=== PATIENT | female | born 1970 | race Caucasian/White ===

== ENCOUNTER 2016-07-20 05:35 | Observation (INO) | payer MEDICAID, OTHER ==
[2016-07-20] VITALS (15 sets, daily range): BP systolic 136–179; BP diastolic 70–97; PULSE 112–130; RESP 16–20; TEMP 98.7–100; O2SAT 94–99
[~2016-07-20] VITALS: Ht 172.7 cm; Wt 114.0 kg
[~2016-07-20 05:35] MED LIST: DICL75 PO; TRAM50 PO
[2016-07-20] MEDS ORDERED: SODIUM CHLOR 0.9% 1000 ML INJ 1,000 ML IV ONE ×4 (05:58→09:45)
[2016-07-20] MEDS ORDERED: ONDANSETRON HCL 4 MG/2 ML VIAL IVP ONE (06:00)
--- NOTE | 2016-07-20 06:05 | PD ---
HPI Chief Complaint: GI Complaint Time Seen by Provider: 05:57 Travel History International Travel<30 days: No Contact w/Intl Traveler<30days: No Traveled to known affect area: No History of Present Illness HPI 45-year-old female presents to the emergency department by private transportation for evaluation of numerous episodes of vomiting with loose stools since 1 AM. Patient reports since Saturday she has been in the hospital with her 5-year-old child was admitted for a stomach virus. Mother has subsequently developed similar symptoms. Mother is also diabetic and has not taken her metformin for 2 days because she reportedly was caring for her child and could not take her medication. Patient ate a normal dinner last evening with a cheeseburger and croatian fries at the hospital and felt well. Patient has had no hematemesis or coffee-ground emesis and only one loose stool. Patient denies abdominal pain chest pain shortness of breath. Patient's had no recent fever or chills sinus pressure drainage sore throat earache neck pain chest pain abdominal pain flank pain dysuria frequency urgency joint pain or swelling or skin rash. Patient does have bouts of sciatica that affected the left back and left lower extremity. Patient denies any recent injury or fall. PFSH Past Medical History Narrative Medical Dyslipidemia type 2 diabetes hypertension kidney stones sciatica migraines; cholecystectomy tonsillectomy; no tobacco use; nursing notes reviewed Arthritis: No Asthma: No Heart Rhythm Problems: No Cancer: No Cardiovascular Problems: No High Cholesterol: Yes Chest Pain: No Congestive Heart Failure: No COPD: No Cerebrovascular Accident: No Diabetes: Yes Diminished Hearing: No Gastrointestinal Disorders: Yes GERD: No Genitourinary: Yes (KIDNEY STONES) Headaches: Yes Hiatal Hernia: No Hypertension: Yes Kidney Stones: Yes Musculoskeletal: Yes (SCIATICA) Neurologic: Yes (LEFT SCIATICA) Reproductive: No Respiratory: No Immunizations Current: No Migraines: Yes Renal Failure: No Seizures: No Sleep Apnea: No Ulcer: No PNEUMOCCOCAL Vaccine (Year): 2 : 4 Para: 4 Miscarriage: 0 : 0 Tubal Ligation: Yes Past Surgical History Abdominal Surgery: Yes ( CHOLECYSTECTOMY) Cardiac Surgery: No Section: Yes (X's 3) Cholecystectomy: Yes (1998) Ear Surgery: No Endocrine Surgery: No Eye Surgery: No Genitourinary Surgery: No Neurologic Surgery: No Oral Surgery: No Pacemaker: No Thoracic Surgery: No Tonsillectomy: Yes Other Surgery: No Social History Alcohol Use: No Tobacco Use: No Substance Use: No Allergies-Medications (Allergen,Severity, Reaction): Coded Allergies: Penicillin (Verified Allergy, Severe, UNKNOWN, 07/20/16) Percocet (Verified Adverse Reaction, Severe, ITCH, 07/20/16) Reported Meds & Prescriptions Reported Meds & Active Scripts Active Reported Aspirin 325 Mg Tab 325 Mg PO DAILY Lisinopril 20 Mg Tab 20 Mg PO DAILY Metformin (Metformin HCl) 500 Mg Tab 500 Mg PO BIDPC With meals Review of Systems Except as stated in HPI: all other systems reviewed are Neg Physical Exam Narrative GENERAL: Well-developed well-nourished female in no acute distress no respiratory distress; triage vital signs heart rate 130 SKIN: Warm and dry. HEAD: Normocephalic. EYES: No scleral icterus. No injection or drainage. NECK: Supple, trachea midline. No JVD or lymphadenopathy. CARDIOVASCULAR: Regular rate and rhythm without murmurs, gallops, or rubs. RESPIRATORY: Breath sounds equal bilaterally. No accessory muscle use. GASTROINTESTINAL: Abdomen soft, non-tender, nondistended. MUSCULOSKELETAL: No cyanosis, or edema. BACK: Nontender without obvious deformity. No CVA tenderness. Data Data Last Documented VS Vital Signs Date Time Temp Pulse Resp B/P Pulse Ox O2 Delivery O2 Flow Rate FiO2 07/20/16 07:02 116 16 179/92 99 Room Air 07/20/16 05:43 98.7 Orders Complete Blood Count With Diff (07/20/16 05:58) Comprehensive Metabolic Panel (07/20/16 05:58) Urinalysis - C+S If Indicated (07/20/16 05:58) Lipase (07/20/16 05:58) Iv Access Insert/Monitor (07/20/16 05:58) Ecg Monitoring (07/20/16 05:58) Oximetry (07/20/16 05:58) Ondansetron Inj (Zofran Inj) (07/20/16 06:00) Sodium Chlor 0.9% 1000 Ml Inj (Ns 1000 M (07/20/16 05:58) Sodium Chloride 0.9% Flush (Ns Flush) (07/20/16 06:00) Ed Urine Pregnancytest Poc (07/20/16 05:58) Sodium Chlor 0.9% 1000 Ml Inj (Ns 1000 M (07/20/16 06:00) Magnesium (Mg) (07/20/16 05:58) Blood Glucose (07/20/16 05:58) Labs Laboratory Tests Test 07/20/16 06:10 White Blood Count 17.1 TH/MM3 Red Blood Count 5.65 MIL/MM3 Hemoglobin 16.2 GM/DL Hematocrit 47.8 % Mean Corpuscular Volume 84.6 FL Mean Corpuscular Hemoglobin 28.7 PG Mean Corpuscular Hemoglobin 33.9 % Concent Red Cell Distribution Width 12.8 % Platelet Count 404 TH/MM3 Mean Platelet Volume 8.7 FL Neutrophils (%) (Auto) 89.5 % Lymphocytes (%) (Auto) 4.4 % Monocytes (%) (Auto) 5.6 % Eosinophils (%) (Auto) 0.2 % Basophils (%) (Auto) 0.3 % Neutrophils # (Auto) 15.2 TH/MM3 Lymphocytes # (Auto) 0.8 TH/MM3 Monocytes # (Auto) 1.0 TH/MM3 Eosinophils # (Auto) 0.0 TH/MM3 Basophils # (Auto) 0.1 TH/MM3 CBC Comment DIFF FINAL Differential Comment Sodium Level 137 MEQ/L Potassium Level 4.0 MEQ/L Chloride Level 102 MEQ/L Carbon Dioxide Level 21.8 MEQ/L Anion Gap 13 MEQ/L Blood Urea Nitrogen 15 MG/DL Creatinine 0.88 MG/DL Estimat Glomerular Filtration 69 ML/MIN Rate Random Glucose 388 MG/DL Calcium Level 9.0 MG/DL Magnesium Level 1.6 MG/DL Total Bilirubin 1.4 MG/DL Aspartate Amino Transf 9 U/L (AST/SGOT) Alanine Aminotransferase 22 U/L (ALT/SGPT) Alkaline Phosphatase 119 U/L Total Protein 7.4 GM/DL Albumin 3.7 GM/DL Lipase 134 U/L MDM Medical Decision Making Medical Screen Exam Complete: Yes Emergency Medical Condition: Yes Medical Record Reviewed: Yes Differential Diagnosis Gastroenteritis, food borne illness, hyperglycemia, DKA, compliance, UTI, Narrative Course IV access obtained specimens collected and sent for resulting normal saline bolus 2 administered along with Zofran 4 mg IV; B @7:05 AM care signed over to oncoming physician Dr. Kent Critical Care Narrative Aggregate critical care time was 35 minutes. Time to perform other separately billable procedures was not included in the critical care time. My time did not include minutes spent treating any other patients simultaneously or on activities that did not directly contribute to the patient's treatment. The services I provided to this patient were to treat and/or prevent clinically significant deterioration that could result in: Arrhythmia, sepsis, hypovolemic shock, metabolic acidosis/metabolic disturbance, I provided critical care services requiring my management, as noted below: Chart data review, documentation time, medication orders and management, vital sign assessments/reviewing monitor data, ordering and reviewing lab tests, ordering and interpreting/reviewing x-rays and diagnostic studies, care of the patient and discussion of the patient with the admitting physicians. Sepsis Criteria SIRS Criteria (2 or more): Heart rate over 90 Meli Esposito MD Jul 20, 2016 06:05
[2016-07-20] MEDS: SODIUM CHLORIDE 0.9% FLUSH 5 ML FLUSH IVF PRN ×2 (06:17→09:54)
[2016-07-20 06:31] LABS: AUTOMATED NEUTROPHIL # 15.2 TH/MM3 (1.8-7.7); BASOPHIL # 0.1 TH/MM3 (0-0.2); BASOPHIL % 0.3 % (0.0-2.0); EOSINOPHIL % 0.2 % (0.0-4.0); HEMATOCRIT 47.8 % (35.0-46.0); LYMPH % 4.4 % (9.0-44.0); LYMPHOCYTE # 0.8 TH/MM3 (1.0-4.8); MEAN CELL VOLUME 84.6 FL (80.0-100.0); MEAN CORPUSCULAR HEMOGLOBIN 28.7 PG (27.0-34.0); MEAN CORPUSCULAR HGB CONC 33.9 % (32.0-36.0); MONO % 5.6 % (0.0-8.0); NEUT % 89.5 % (16.0-70.0); PLATELET COUNT 404 TH/MM3 (150-450); RED BLOOD COUNT 5.65 MIL/MM3 (4.00-5.30); RED CELL DISTRIBUTION WIDTH 12.8 % (11.6-17.2); WHITE BLOOD COUNT 17.1 TH/MM3 (4.0-11.0)
[2016-07-20 06:36] LABS: HEMO FLAGS DIFF FINAL
[2016-07-20 06:39] LABS: CHLORIDE 102 MEQ/L (98-107); SODIUM (NA) 137 MEQ/L (136-145)
[2016-07-20] MEDS ORDERED: METF500T PO (06:40)
[2016-07-20] MEDS ORDERED: LISI-515 PO (06:42)
[2016-07-20] MEDS ORDERED: ASPI325T PO (06:42)
[2016-07-20 06:43] LABS: ANION GAP 13 MEQ/L (5-15); BICARBONATE 21.8 MEQ/L (21.0-32.0); BLOOD UREA NITROGEN 15 MG/DL (7-18); MAGNESIUM 1.6 MG/DL (1.5-2.5)
[2016-07-20 06:46] LABS: ALT (GPT) 22 U/L (10-53); AST (GOT) 9 U/L (15-37); GLOMERULAR FILTRATION RATE 69 ML/MIN (>89)
[2016-07-20 06:48] LABS: TOTAL BILIRUBIN ADULT 1.4 MG/DL (0.2-1.0)
[2016-07-20 06:49] LABS: ALKALINE PHOSPHATASE 119 U/L (45-117)
--- NOTE | 2016-07-20 07:36 | PD ---
Physical Exam Date Seen by Provider: Jul 20, 2016 Narrative Care is assumed from Dr. Esposito. Patient is being seen with the acute onset of vomiting. She is a diabetic and is hyperglycemic. She was being treated with IV fluids and IV antibiotics. The patient is now requesting something for headache. Thus far, she has been given Zofran. I will add Compazine and Benadryl. That should help both the vomiting and the headache. Data Data Last Documented VS Vital Signs Date Time Temp Pulse Resp B/P Pulse Ox O2 Delivery O2 Flow Rate FiO2 07/20/16 12:59 130 16 136/70 142 16 156/84 143 16 169/81 07/20/16 11:28 97 Room Air 07/20/16 05:43 98.7 Orders Complete Blood Count With Diff (07/20/16 05:58) Comprehensive Metabolic Panel (07/20/16 05:58) Urinalysis - C+S If Indicated (07/20/16 05:58) Lipase (07/20/16 05:58) Iv Access Insert/Monitor (07/20/16 05:58) Ecg Monitoring (07/20/16 05:58) Oximetry (07/20/16 05:58) Ondansetron Inj (Zofran Inj) (07/20/16 06:00) Sodium Chlor 0.9% 1000 Ml Inj (Ns 1000 M (07/20/16 05:58) Sodium Chloride 0.9% Flush (Ns Flush) (07/20/16 06:00) Ed Urine Pregnancytest Poc (07/20/16 05:58) Sodium Chlor 0.9% 1000 Ml Inj (Ns 1000 M (07/20/16 06:00) Magnesium (Mg) (07/20/16 05:58) Blood Glucose (07/20/16 05:58) Prochlorperazine Inj (Compazine Inj) (07/20/16 07:45) Diphenhydramine Inj (Benadryl Inj) (07/20/16 07:45) Bedside Glucose KHUSHI.AC&HS (07/20/16 07:37) Vital Signs (07/20/16 07:37) Sodium Chlor 0.9% 1000 Ml Inj (Ns 1000 M (07/20/16 09:45) Sodium Chlor 0.9% 1000 Ml Inj (Ns 1000 M (07/20/16 09:45) Vital Signs (07/20/16 09:39) Lactic Acid Sepsis Protocol (07/20/16 10:59) Blood Culture (07/20/16 10:59) Complete Blood Count With Diff (07/20/16 10:59) Orthostatic Vital Signs (07/20/16 10:59) Admit Order (Ed Use Only) (07/20/16 14:20) Labs Laboratory Tests Test 07/20/16 07/20/16 07/20/16 07/20/16 06:10 07:25 11:20 11:45 White Blood Count 17.1 TH/MM3 10.1 TH/MM3 Red Blood Count 5.65 MIL/MM3 5.04 MIL/MM3 Hemoglobin 16.2 GM/DL 14.6 GM/DL Hematocrit 47.8 % 42.5 % Mean Corpuscular Volume 84.6 FL 84.2 FL Mean Corpuscular Hemoglobin 28.7 PG 28.9 PG Mean Corpuscular Hemoglobin 33.9 % 34.3 % Concent Red Cell Distribution Width 12.8 % 12.5 % Platelet Count 404 TH/MM3 321 TH/MM3 Mean Platelet Volume 8.7 FL 8.6 FL Neutrophils (%) (Auto) 89.5 % 93.4 % Lymphocytes (%) (Auto) 4.4 % 3.5 % Monocytes (%) (Auto) 5.6 % 2.8 % Eosinophils (%) (Auto) 0.2 % 0.1 % Basophils (%) (Auto) 0.3 % 0.2 % Neutrophils # (Auto) 15.2 TH/MM3 9.4 TH/MM3 Lymphocytes # (Auto) 0.8 TH/MM3 0.4 TH/MM3 Monocytes # (Auto) 1.0 TH/MM3 0.3 TH/MM3 Eosinophils # (Auto) 0.0 TH/MM3 0.0 TH/MM3 Basophils # (Auto) 0.1 TH/MM3 0.0 TH/MM3 CBC Comment DIFF FINAL DIFF FINAL Differential Comment Sodium Level 137 MEQ/L Potassium Level 4.0 MEQ/L Chloride Level 102 MEQ/L Carbon Dioxide Level 21.8 MEQ/L Anion Gap 13 MEQ/L Blood Urea Nitrogen 15 MG/DL Creatinine 0.88 MG/DL Estimat Glomerular Filtration 69 ML/MIN Rate Random Glucose 388 MG/DL Calcium Level 9.0 MG/DL Magnesium Level 1.6 MG/DL Total Bilirubin 1.4 MG/DL Aspartate Amino Transf 9 U/L (AST/SGOT) Alanine Aminotransferase 22 U/L (ALT/SGPT) Alkaline Phosphatase 119 U/L Total Protein 7.4 GM/DL Albumin 3.7 GM/DL Lipase 134 U/L Urine Collection Type CLEAN CATCH Urine Color YELLOW Urine Turbidity CLEAR Urine pH 5.5 Urine Specific [place] 1.035 Urine Protein 30 mg/dL Urine Glucose (UA) 1000 OR GREATER mg/dL Urine Ketones 80 OR GREATER mg/dL Urine Occult Blood TRACE Urine Nitrite NEG Urine Bilirubin NEG Urine Leukocyte Esterase NEG Urine RBC 0-3 /hpf Urine WBC 0-2 /hpf Urine Squamous Epithelial 6-8 /hpf Cells Microscopic Urinalysis Comment CULT NOT INDICATED Urine Collection Time 07:25 Lactic Acid Level 2.4 mmol/L [facility] Supervised Visit with LISANDRA: No Narrative Course The patient's abdomen is soft and seems to be nontender. Laboratory Tests Test 07/20/16 07/20/16 06:10 07:25 White Blood Count 17.1 TH/MM3 Red Blood Count 5.65 MIL/MM3 Hemoglobin 16.2 GM/DL Hematocrit 47.8 % Mean Corpuscular Volume 84.6 FL Mean Corpuscular Hemoglobin 28.7 PG Mean Corpuscular Hemoglobin 33.9 % Concent Red Cell Distribution Width 12.8 % Platelet Count 404 TH/MM3 Mean Platelet Volume 8.7 FL Neutrophils (%) (Auto) 89.5 % Lymphocytes (%) (Auto) 4.4 % Monocytes (%) (Auto) 5.6 % Eosinophils (%) (Auto) 0.2 % Basophils (%) (Auto) 0.3 % Neutrophils # (Auto) 15.2 TH/MM3 Lymphocytes # (Auto) 0.8 TH/MM3 Monocytes # (Auto) 1.0 TH/MM3 Eosinophils # (Auto) 0.0 TH/MM3 Basophils # (Auto) 0.1 TH/MM3 CBC Comment DIFF FINAL Differential Comment Sodium Level 137 MEQ/L Potassium Level 4.0 MEQ/L Chloride Level 102 MEQ/L Carbon Dioxide Level 21.8 MEQ/L Anion Gap 13 MEQ/L Blood Urea Nitrogen 15 MG/DL Creatinine 0.88 MG/DL Estimat Glomerular Filtration 69 ML/MIN Rate Random Glucose 388 MG/DL Calcium Level 9.0 MG/DL Magnesium Level 1.6 MG/DL Total Bilirubin 1.4 MG/DL Aspartate Amino Transf 9 U/L (AST/SGOT) Alanine Aminotransferase 22 U/L (ALT/SGPT) Alkaline Phosphatase 119 U/L Total Protein 7.4 GM/DL Albumin 3.7 GM/DL Lipase 134 U/L Urine Collection Type CLEAN CATCH Urine Color YELLOW Urine Turbidity CLEAR Urine pH 5.5 Urine Specific [place] 1.035 Urine Protein 30 mg/dL Urine Glucose (UA) 1000 OR GREATER mg/dL Urine Ketones 80 OR GREATER mg/dL Urine Occult Blood TRACE Urine Nitrite NEG Urine Bilirubin NEG Urine Leukocyte Esterase NEG Urine RBC 0-3 /hpf Urine WBC 0-2 /hpf Urine Squamous Epithelial 6-8 /hpf Cells Microscopic Urinalysis Comment CULT NOT INDICATED Urine Collection Time 07:25 Patient has been treated here with 2 L of fluid and Zofran initially. She was subsequently given Compazine and Benadryl for a complaint of headache. 9:40 AM Patient continues to be tachycardic at about 120 following 2 L of fluid. I have ordered an additional 2 L bolus and will recheck her vital signs following this. 11 AM Patient continues to be tachycardic at about 120 even following 4 L of fluid. I have ordered a repeat CBC, a lactic acid, blood cultures and orthostatic vital signs. 1:20 PM Patient continues to be tachycardic. Orthostatic vital signs are negative. Repeat white count is about 10. Lactic acid was 2.4. In the meantime, I have spoken with Dr. Booker a couple of times about the patient. She has most recently asked me to speak with patient's primary care provider, Dr. Valles. We have a page out to him but his office is closed for lunch. 1:40 PM I have spoken with Dr. Reis, Dr. Valles's partner, who is able to look at the patient's records in the office. The patient is chronically noncompliant with her diabetic medication., He is not generally tachycardic in the office. Her most recent outpatient heart rate was 69. He agrees that the patient needs to be admitted at least for observation. I will call Dr. Sid Robertson back. 2:[address] Booker will now admit to OBSERVATION. Sepsis Criteria SIRS Criteria (2 or more): Heart rate over 90, WBC > 36706, < 4000 or > 10% bands Septic Shock Criteria: Unresponsive to 30ml/kg fluid bolus Physician Communication Physician Communication Case discussed with Dr. Knapp. She asked that I observe the patient for another hour. If the patient does not improve in that hour, she will admit the patient to observation Diagnosis Primary Impression: Vomiting Qualified Code: R11.2 - Non-intractable vomiting with nausea, unspecified vomiting type Additional Impressions: Acute hyperglycemia Headache Qualified Code: R51 - Acute nonintractable headache, unspecified headache type SIRS (systemic inflammatory response syndrome) Admitting Information Admitting Physician Requests: Observation Condition: Stable Alysia Kent MD Jul 20, 2016 07:35
[2016-07-20 07:40] LABS: BLOOD, URINE TRACE (NEG); NITRITE,URINE NEG (NEG); PH, URINE 5.5 (5.0-8.5)
[2016-07-20 07:44] LABS: GLUCOSE,URINE 1000 OR GREATER mg/dL (NEG); KETONE, URINE 80 OR GREATER mg/dL (NEG)
[2016-07-20 07:45] LABS: METHOD OF COLLECTION CLEAN CATCH; RBC, URINE 0-3 /hpf (0-3); URINE COLOR YELLOW (YELLW/STRAW); WBC, URINE 0-2 /hpf (0-5)
[2016-07-20] MEDS ORDERED: diphenhydrAMINE HCL 50 MG/ML VIAL IV PUSH ONE (07:45)
[2016-07-20] MEDS ORDERED: PROCHLORPERAZINE INJ 10 MG/2 ML VIAL IVS ONE (07:45)
[2016-07-20 07:46] LABS: COMMENT (UR) CULT NOT INDICATED; CULTURE IF INDICATED CULT NOT INDICATED
[2016-07-20] MEDS ORDERED: PROM25TA5 PO (09:42)
[2016-07-20 11:43] LABS: AUTOMATED NEUTROPHIL # 9.4 TH/MM3 (1.8-7.7); BASOPHIL % 0.2 % (0.0-2.0); EOSINOPHIL % 0.1 % (0.0-4.0); HEMATOCRIT 42.5 % (35.0-46.0); HEMO FLAGS DIFF FINAL; LYMPH % 3.5 % (9.0-44.0); LYMPHOCYTE # 0.4 TH/MM3 (1.0-4.8); MEAN CELL VOLUME 84.2 FL (80.0-100.0); MEAN CORPUSCULAR HEMOGLOBIN 28.9 PG (27.0-34.0); MEAN CORPUSCULAR HGB CONC 34.3 % (32.0-36.0); MONO % 2.8 % (0.0-8.0); NEUT % 93.4 % (16.0-70.0); PLATELET COUNT 321 TH/MM3 (150-450); RED BLOOD COUNT 5.04 MIL/MM3 (4.00-5.30); RED CELL DISTRIBUTION WIDTH 12.5 % (11.6-17.2); WHITE BLOOD COUNT 10.1 TH/MM3 (4.0-11.0)
[2016-07-20 13:46] LABS: LACTIC ACID GHOST NOT REPORTABLE
[2016-07-20] MEDS ORDERED: NALOXONE HCL 0.4 MG/ML AMP IV PRN (15:15)
[2016-07-20] MEDS ORDERED: SODIUM CHLORIDE 0.9% FLUSH 5 ML FLUSH FLUSH PRN (15:15)
[2016-07-20] MEDS: ACETAMINOPHEN 325 MG TAB PO PRN (15:34)
[2016-07-20] MEDS: SODIUM CHLOR 0.9% 1000 ML INJ 1,000 ML IV SCH (15:34)
[2016-07-20] MEDS ORDERED: ONDANSETRON HCL 4 MG/2 ML VIAL IVP PRN (16:00)
[2016-07-20 16:20] LABS: BICARBONATE 19.3 MEQ/L (21.0-32.0); CALCIUM-PROTEIN CORRECTED 8.1 MG/DL (8.5-10.1); POTASSIUM 3.6 MEQ/L (3.5-5.1)
[2016-07-20] MEDS ORDERED: KETOROLAC TROMETHAMINE 30 MG/ML (IVP) VIAL IV PUSH ONE (16:45)
[2016-07-20] MEDS: INSULIN ASPART SUPPLEMENTAL SCALE SQ SCH ×2 (16:56→21:33)
[2016-07-20] MEDS: LISINOPRIL 20 MG TAB PO SCH ×2 (17:13→17:14)
--- NOTE | 2016-07-20 18:05 | MH ---
cc: ONIEL WRAY M.D. DATE OF ADMISSION 07/20/2016 ADMISSION DIAGNOSIS Hyperglycemia, headache, tachycardia. HISTORY OF PRESENT ILLNESS Ms Dubois is a 45-year-old female who presents to the emergency room after waking up this morning and having several episodes of emesis. According to the patient, she has been in her usual state of health, but under a little bit more increased stress as her daughter has been at [facility] admitted to the hospital. She says that she has been there for the last several days at her side caring for her. She has had very little sleep. She has primarily been eating at the hospital. Last night she had a cheeseburger and she said she had a slice of pizza again after she had gone home which did not sit very well on her. This morning when she woke up she had several bouts of emesis that were not resolving. She did say that she had one formed stool with the emesis. She denies any actual abdominal pain or nausea. She is diabetic and hypertensive and apparently for the last three days since her daughter has been in the hospital. She has not been taking any of her medications. She also states that since she got to the emergency room she has had the progressive development of a headache which is primarily frontal and over her left eye. She says that she does get these. She does have a history of these and she has actually been getting them a little bit more frequently lately, maybe once a week. They usually resolve with Advil. She denies any episodes of nausea or vomiting when she does have these headaches. She has had no fevers or chills. She has had no household members that are sick. Her daughter was seen in the hospital for UTI and then constipation. She has had episodes of admission to the hospital for similar symptoms. PAST MEDICAL HISTORY 1. Hyperlipidemia. 2. Gestational diabetes and then afterwards developed type 2 diabetes 3. High blood pressure 4. Problems with sciatica in the past 5. Recurrent headaches. PAST SURGICAL HISTORY 1. Cholecystectomy 2. x3 3. Tubal ligations ALLERGIES PENICILLIN - DOES NOT KNOW WHAT THE ALLERGY CONSISTS OF. She says she was told this by her mother. PERCOCET - ITCHING MEDICATIONS Supposed to be on 1. Metformin 500 mg twice a day, 2. Lisinopril 20 mg daily. She says this was recently increased by her doctor. 3. Aspirin 4. Flexeril and Methocarbamol in the past for muscle spasms and sciatic HABITS She does not smoke or consume alcohol. SOCIAL HISTORY She is . She has three children. 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 REVIEW OF SYSTEMS She denies any fevers, chills, any sore throat. She has not had any chest pain or palpitations. She sometimes will get some pain on both upper arms. Currently she has denied any kind of abdominal pain, change in her bowel movements. She is not having any diarrhea. She just had that one formed stool with episode of emesis. She denies any dysuria or urgency. She states she has not had any increased urination. She does say that she has had what she calls some boils over her suprapubic area and around her vagina in the last week. These apparently she has been treating with moist hot compresses and these have been resolving. She does get pain in her lower legs at times, but she has not noticed any swelling. FAMILY HISTORY Noncontributory PHYSICAL EXAMINATION VITAL SIGNS: Heart rate is 129, pulse is 16, blood pressure is 158/80, pulse ox on room air is 98%. GENERAL: This is a pleasant obese female lying in the ER cot. She is a little bit flushed. She looks uncomfortable. She is wearing glasses. HEENT: She is normocephalic atraumatic. EOM is intact. She has a clear oropharynx. Both ear canals are clear as well as her tympanic membranes. NECK: Supple. She has no bruits. LUNGS: Clear to auscultation bilaterally. Cardiac: She is tachycardiac but I hear no murmurs. ABDOMEN: Abdomen is globose. She has good bowel sounds in all four quadrants. A little bit of tenderness in the mid epigastric to right upper quadrant. EXTREMITIES: No clubbing, cyanosis. SKIN: She does have some healing areas in her suprapubic area where she might have had some boils, but the skin in the suprapubic area seems to be dry and the one in the labia is actually not very large and has no head, is not tender or red. LABORATORY DATA Lab work that was done when she came in showed White count of 17.1, hemoglobin 16.2, hematocrit of 47.8, platelet count was 404. Sodium was 137, potassium was four, BUN was 15, creatinine of 0.88, glucose was 388, total bilirubin was 1.4, AST was nine, alkaline phosphatase was 119, lactic acid was 2.4. Her urine showed 1000 or greater glucose, 80 or greater ketones, trace occult blood. CARDIOLOGY STUDIES EKG has not been ordered yet, but in the monitor she looks like a sinus tachycardia. ASSESSMENT/PLAN A 45-year-old female presenting to the emergency room with emesis. She was given Zofran then Compazine and Benadryl. She has had no further episodes of emesis since this has been given to her. She has been given IV fluids. Her blood pressure has done well, but she has remained consistently tachycardiac. She is also complaining of persistent headache. At this point, since the headaches have responded to nonsteroidals in the past I am going to give her a one-time dose of Toradol. It is possible that her tachycardia is secondary to the pain. She has not received any insulin to cover her hyperglycemia. We will start her on a low sliding scale regimen of insulin as well as a normal saline to bring down her sugars. Check a hemoglobin A1c as well as a TSH. Further recommendations as the case develops. MD MILTON Martino/ /4:47 PM /5:39 PM
[2016-07-20] MEDS ORDERED: POTASSIUM CHLORIDE 10 MEQ CONTROLLED RELEASE TAB PO ONE (19:15)
[2016-07-20] MEDS: PANTOPRAZOLE SOD 40 MG DELAYED RELEASE TAB PO SCH (19:38)
[2016-07-20] MEDS: SODIUM CHLORIDE 0.9% FLUSH 5 ML FLUSH FLUSH SCH (21:00)
[2016-07-20] MEDS ORDERED: TEMAZEPAM 15 MG CAP PO PRN (21:00)
[2016-07-20] MEDS: CALCIUM CARBONATE 500 MG CHEWABLE TAB CHEW SCH (21:33)
[2016-07-20] MEDS ORDERED: LORazepam 0.5 MG TAB PO ONE (23:00)
[2016-07-20] MEDS ORDERED: ACETAMIN 325 MG/BUTALBITAL 50 MG/CAFFEINE 40 MG TAB PO ONE (23:00)
[2016-07-21 01:53] VITALS: PULSE 120
[2016-07-21 05:07] VITALS: BP 104/58; PULSE 101; RESP 12; TEMP 97.7; O2SAT 96
[2016-07-21] MEDS: INSULIN ASPART SUPPLEMENTAL SCALE SQ SCH ×4 (06:17→21:00)
[2016-07-21] MEDS: SODIUM CHLOR 0.9% 1000 ML INJ 1,000 ML IV SCH (06:17)
[2016-07-21 07:12] LABS: AUTOMATED NEUTROPHIL # 6.2 TH/MM3 (1.8-7.7); BASOPHIL % 0.4 % (0.0-2.0); EOSINOPHIL % 0.2 % (0.0-4.0); HEMATOCRIT 39.9 % (35.0-46.0); HEMO FLAGS DIFF FINAL; LYMPH % 17.3 % (9.0-44.0); LYMPHOCYTE # 1.4 TH/MM3 (1.0-4.8); MEAN CELL VOLUME 83.8 FL (80.0-100.0); MEAN CORPUSCULAR HEMOGLOBIN 29.1 PG (27.0-34.0); MEAN CORPUSCULAR HGB CONC 34.7 % (32.0-36.0); MONO % 6.7 % (0.0-8.0); NEUT % 75.4 % (16.0-70.0); PLATELET COUNT 309 TH/MM3 (150-450); RED BLOOD COUNT 4.76 MIL/MM3 (4.00-5.30); RED CELL DISTRIBUTION WIDTH 12.5 % (11.6-17.2); WHITE BLOOD COUNT 8.1 TH/MM3 (4.0-11.0)
[2016-07-21 07:31] LABS: CHLORIDE 108 MEQ/L (98-107); SODIUM (NA) 139 MEQ/L (136-145)
[2016-07-21 07:36] LABS: BLOOD UREA NITROGEN 9 MG/DL (7-18)
[2016-07-21 07:37] LABS: ANION GAP 10 MEQ/L (5-15); BICARBONATE 21.2 MEQ/L (21.0-32.0)
[2016-07-21 07:39] LABS: ALT (GPT) 18 U/L (10-53); AST (GOT) 10 U/L (15-37); GLOMERULAR FILTRATION RATE 89 ML/MIN (>89)
--- NOTE | 2016-07-21 07:41 | HHI.PR ---
Subjective Remarks Had a couple of episodes of diarrhea last night. No more vomiting. Feels hungry but is a bit fearful of eating this morning due to the diarrhea. No hematochezia or melena. Denies chest pain or shortness of breath. Objective Vitals Vital Signs Date Time Temp Pulse Resp B/P Pulse Ox O2 Delivery O2 Flow Rate FiO2 07/21/16 05:07 97.7 101 12 104/58 96 07/21/16 01:53 120 07/20/16 23:57 100.0 07/20/16 21:39 112 18 147/83 99 Room Air 07/20/16 19:33 112 18 137/85 98 Room Air 07/20/16 19:30 97 21 07/20/16 16:58 16 07/20/16 15:24 129 16 158/80 98 Room Air 07/20/16 15:20 98 21 07/20/16 12:59 130 16 136/70 142 16 156/84 143 16 169/81 07/20/16 11:28 124 16 147/80 97 Room Air 07/20/16 09:28 121 16 154/87 97 Room Air 07/20/16 08:23 122 16 168/80 99 Room Air 07/20/16 07:53 120 16 168/72 98 Room Air 07/20/16 07/20/16 07/21/16 15:00 23:00 07:00 Intake Total 4000 ml 720 ml Output Total 400 ml Balance 4000 ml 320 ml Intake Oral 240 ml IV Total 4000 ml 480 ml Output Urine Total 400 ml # Voids 1 3 1 # Bowel Movements 0 GENERAL: Obese, no acute distress, alert and oriented and cooperative with exam. SKIN: Warm and dry. HEAD: Normocephalic. No tenderness to palpation over temporal arteries. Slight tenderness to palpation over left frontal sinus. EYES: No scleral icterus. No injection or drainage. NECK: Supple, trachea midline. No JVD or lymphadenopathy. No nuchal rigidity or meningismus signs. CARDIOVASCULAR: Regular rate and rhythm without murmurs, gallops, or rubs. Heart rate approximately 105 on my exam. RESPIRATORY: Breath sounds equal bilaterally. No accessory muscle use. GASTROINTESTINAL: Abdomen soft, nondistended. Mild tenderness to palpation in lower abdomen. No guarding or rebound. Bowel sounds normoactive. MUSCULOSKELETAL: No cyanosis, or edema. BACK: Nontender without obvious deformity. No CVA tenderness. Result Diagram: 07/21/16 0640 07/20/16 1520 Urinary Catheter: No Vascular Central Line Catheter: No A/P Problem List: (1) SIRS (systemic inflammatory response syndrome) Status: Acute Plan: Possibly associated with the gastroenteritis. Do not see evidence of acute bacterial infection on exam. White blood cell count is normalized. Her mild lactic acidosis elevation was possibly associated with dehydration due to vomiting and diarrhea. She has good urine output and desires to eat this morning. Hopefully discharge home later today depending on how she does with diet tolerance. It is noted she has persistent mild tachycardia. She has had tachycardia in the past. Some of this biopsy associated with her intervascular volume depletion while other etiology could be her left frontal sinus headache which is a recurrent issue for her. (2) Gastroenteritis Status: Acute Plan: Possibly from unusual food ingestion is urinating well and has had no more vomiting. She has had 2 reported episodes of diarrhea overnight. Advance diet. (3) Diabetes mellitus type 2 in obese Status: Chronic Plan: We'll hold metformin while she is having the diarrhea. We'll give a dose of glimepiride to see how she tolerates this morning. I have had a long discussion with her regarding importance of home monitoring of her sugars and the need to lose more weight. She would likely benefit from metformin and Jardiance combination as an outpatient once current gastroenteritis has resolved. I did discuss this with her as well. Discharge Planning Hopefully discharge home today. Owen Padilla MD PhD Jul 21, 2016 07:41
[2016-07-21 07:42] LABS: ALKALINE PHOSPHATASE 95 U/L (45-117)
[2016-07-21] MEDS ORDERED: GLIM1TAB PO (07:44)
[2016-07-21] MEDS ORDERED: CALC500C16 CHEW (07:44)
[2016-07-21] MEDS ORDERED: PANT40TA3 PO (07:44)
[2016-07-21] MEDS ORDERED: METF500T PO (07:46)
[2016-07-21 08:00] VITALS: BP 139/84; PULSE 109; RESP 20; TEMP 99.7; O2SAT 95
[2016-07-21] MEDS ORDERED: NS + KCL 40 MEQ INJ 1,000 ML IV SCH (08:45)
[2016-07-21] MEDS: ASPIRIN 325 MG TAB PO SCH (08:59)
[2016-07-21] MEDS: GLIMEPIRIDE 1 MG TAB PO SCH (08:59)
[2016-07-21] MEDS: CALCIUM CARBONATE 500 MG CHEWABLE TAB CHEW SCH ×2 (08:59→20:59)
[2016-07-21] MEDS: PANTOPRAZOLE SOD 40 MG DELAYED RELEASE TAB PO SCH (09:00)
[2016-07-21] MEDS ORDERED: POTASSIUM CHLORIDE 10 MEQ CONTROLLED RELEASE TAB PO ONE (09:00)
[2016-07-21] MEDS: SODIUM CHLORIDE 0.9% FLUSH 5 ML FLUSH FLUSH SCH ×2 (09:00→20:37)
[2016-07-21] MEDS ORDERED: PNEUMOCOCCAL POLYVALENT INJ 25 MCG/0.5 ML SYR IM ONE (10:00)
[2016-07-21] MEDS ORDERED: INFLUENZA VIRUS VACCINE (QUADRIVALENT) 0.5 ML SYR IM ONE (10:00)
[2016-07-21 12:00] VITALS: BP 154/76; PULSE 117; RESP 20; TEMP 99; O2SAT 99
[2016-07-21] MEDS: ACETAMINOPHEN 325 MG TAB PO PRN (12:31)
--- NOTE | 2016-07-21 14:13 | EKG ---
Date Performed: 07/20/2016 Time Performed: 16:23:46 PTAGE: 45 years EKG: Sinus tachycardia Poor initial anterior forces which is probably a normal variant Borderlin e left axis deviation Nonspecific ST-T change Low QRS voltage in precordial leads Compared to previou s tracing ST-T changes are somewhat more abnormal and the QRS voltage is slightly lower Abnormal ECG PREVIOUS TRACING : 12/07/2013 19.15 DOCTOR: Ugo Moulton Interpretating Date/Time 07/21/2016 14:12:57
[2016-07-21 16:00] VITALS: BP 126/76; PULSE 101; RESP 20; TEMP 99.2; O2SAT 96
[2016-07-21] MEDS ORDERED: ACETAMIN 325 MG/BUTALBITAL 50 MG/CAFFEINE 40 MG TAB PO PRN (16:30)
[2016-07-21] MEDS ORDERED: BUTATAB6 PO (17:03)
[2016-07-21] MEDS: LISINOPRIL 20 MG TAB PO SCH (17:18)
--- NOTE | 2016-07-21 19:50 | RADHPO ---
EXAM DATE/TIME: 07/21/2016 19:19 [place] COMPARISON: No previous studies available for comparison. INDICATIONS : Headache. RADIATION DOSE: 58.94 CTDIvol (mGy) MEDICAL HISTORY : Hypertension. Diabetes. SURGICAL HISTORY : Tubal ligation. ENCOUNTER: Initial ACUITY: 1 day PAIN SCALE: 7/10 LOCATION: cranial TECHNIQUE: Multiple contiguous axial images were obtained of the head. Using automated exposure control and adj ustment of the mA and/or kV according to patient size, radiation dose was kept as low as reasonably a chievable to obtain optimal diagnostic quality images. FINDINGS: CEREBRUM: The ventricles are normal for age. No evidence of midline shift, mass lesion, hemorrhage or acute in farction. No extra-axial fluid collections are seen. POSTERIOR FOSSA: The cerebellum and brainstem are intact. The 4th ventricle is midline. The cerebellopontine angle i s unremarkable. EXTRACRANIAL: The visualized portion of the orbits is intact. SKULL: The calvaria is intact. No evidence of skull fracture. CONCLUSION: Normal examination for a patient of this age. No significant change has occurred. Virgilio Porter MD on July 21, 2016 at 19:46 Board Certified Radiologist. This report was verified electronically.
[2016-07-21 20:00] VITALS: BP 148/86; PULSE 90; PULSE 98; RESP 18; TEMP 99.3; O2SAT 98
[2016-07-21] MEDS ORDERED: MAGNESIUM SULFATE 1 GM PREMIX 100 ML IV ONE (20:15)
[2016-07-22] VITALS: BP 142/83; PULSE 90; RESP 18; TEMP 99.2; O2SAT 96
[2016-07-22 04:00] VITALS: BP 134/71; PULSE 90; RESP 18; TEMP 97.9; O2SAT 97
[2016-07-22] MEDS: INSULIN ASPART SUPPLEMENTAL SCALE SQ SCH ×2 (06:14→12:05)
--- NOTE | 2016-07-22 07:28 | HHI.PR ---
Subjective Remarks No more vomiting. She notes several episodes of diarrhea overnight. Reportedly two more family members have come down with the nausea vomiting diarrhea in the last 24 hours and actually were evaluated in the ER as well. Objective Vitals Vital Signs Date Time Temp Pulse Resp B/P Pulse Ox O2 Delivery O2 Flow Rate FiO2 07/22/16 04:00 97.9 90 18 134/71 97 07/22/16 00:00 99.2 90 18 142/83 96 07/21/16 20:00 99.3 90 18 148/86 98 07/21/16 20:00 98 07/21/16 18:18 18 07/21/16 16:00 99.2 101 20 126/76 96 07/21/16 13:31 18 07/21/16 12:00 99.0 117 20 154/76 99 07/21/16 08:00 99.7 109 20 139/84 95 07/21/16 07/21/16 07/22/16 15:00 23:00 07:00 Intake Total 1240 ml 800 ml 240 ml Balance 1240 ml 800 ml 240 ml Intake Oral 1240 ml 240 ml IV Total 800 ml # Voids 5 2 2 # Bowel Movements 0 0 0 GENERAL: No acute distress, alert and oriented. Sleeping but arouses to voice. SKIN: Warm and dry. HEAD: Normocephalic. EYES: No scleral icterus. No injection or drainage. NECK: Supple, trachea midline. No JVD or lymphadenopathy. CARDIOVASCULAR: Regular rate and rhythm without murmurs, gallops, or rubs. RESPIRATORY: Breath sounds equal bilaterally. No accessory muscle use. GASTROINTESTINAL: Abdomen soft, non-tender, nondistended. Slightly increased bowel sounds but otherwise normal. MUSCULOSKELETAL: No cyanosis, or edema. BACK: Nontender without obvious deformity. No CVA tenderness. Result Diagram: 07/21/1663907/21/16639 Urinary Catheter: No Vascular Central Line Catheter: No A/P Problem List: (1) SIRS (systemic inflammatory response syndrome) Status: Acute Plan: Possibly associated with the gastroenteritis. Do not see evidence of acute bacterial infection on exam. White blood cell count has normalized. Her mild lactic acidosis elevation was possibly associated with dehydration due to vomiting and diarrhea. She is no longer having more vomiting but does have some diarrhea. We'll try Bentyl as needed for cramping. This illness seems to be going through her family. Her mild tachycardia has improved and heart rate is now in the upper 80s to 90s. (2) Gastroenteritis Status: Acute Plan: Possibly from unusual high fat food ingestion is urinating well and has had no more vomiting. She has had 3-4 reported episodes of diarrhea overnight. Nurse reports only one that she is aware of. Patient tolerating oral intake. Encouraged her to observe bland low-fat diet. Mild hypokalemia likely associated with GI loss. Replace and recheck. (3) Diabetes mellitus type 2 in obese Status: Chronic Plan: We'll hold metformin while she is having the diarrhea. We'll provide glimepiride. I have had a long discussion with her regarding importance of home monitoring of her sugars and the need to lose more weight. She would likely benefit from metformin and Jardiance combination as an outpatient once current gastroenteritis has resolved. I did discuss this with her as well. Discharge Planning Plan to discharge home later today. Owen Padilla MD PhD Jul 22, 2016 07:28
[2016-07-22] MEDS ORDERED: BENT20TA PO (07:29)
[2016-07-22 08:00] VITALS: BP 141/82; PULSE 95; RESP 20; TEMP 98.7; O2SAT 97
[2016-07-22 08:00] LABS: POTASSIUM 3.7 MEQ/L (3.5-5.1)
[2016-07-22 08:06] LABS: BICARBONATE 22.4 MEQ/L (21.0-32.0); MAGNESIUM 1.7 MG/DL (1.5-2.5)
[2016-07-22] MEDS: ASPIRIN 325 MG TAB PO SCH (08:52)
[2016-07-22] MEDS: CALCIUM CARBONATE 500 MG CHEWABLE TAB CHEW SCH (08:52)
[2016-07-22] MEDS: PANTOPRAZOLE SOD 40 MG DELAYED RELEASE TAB PO SCH (08:52)
[2016-07-22] MEDS: GLIMEPIRIDE 1 MG TAB PO SCH (08:52)
[2016-07-22] MEDS: LISINOPRIL 20 MG TAB PO SCH (08:52)
[2016-07-22] MEDS: DICYCLOMINE HCL 20 MG TAB PO SCH ×2 (08:52→12:05)
[2016-07-22] MEDS: SODIUM CHLORIDE 0.9% FLUSH 5 ML FLUSH FLUSH SCH (08:54)
[2016-07-22 10:15] LABS: HEMOGLOBIN A1a 0.9 %; HEMOGLOBIN A1b 2.6 %; HEMOGLOBIN Ao 79.7 %; HEMOGLOBIN LA1C 2.5 %; HEMOGLOBIN P3 4.4 %
--- NOTE | 2016-07-22 12:23 | HHI.DS ---
Discharge Summary Admission Date Jul 20, 2016 at 14:21 Discharge Date: Jul 22, 2016 Admitting Diagnosis TACHYCARDIA (1) SIRS (systemic inflammatory response syndrome) Diagnosis: Principal (2) Gastroenteritis Diagnosis: Principal (3) Diabetes mellitus type 2 in obese Diagnosis: Secondary Brief History Ms Dubois is a 45-year-old female who presents to the emergency room after waking up this morning and having several episodes of emesis. According to the patient, she has been in her usual state of health, but under a little bit more increased stress as her daughter has been at [facility] admitted to the hospital. She says that she has been there for the last several days at her side caring for her. She has had very little sleep. She has primarily been eating at the hospital. Last night she had a cheeseburger and she said she had a slice of pizza again after she had gone home which did not sit very well on her. This morning when she woke up she had several bouts of emesis that were not resolving. She did say that she had one formed stool with the emesis. She denies any actual abdominal pain or nausea. She is diabetic and hypertensive and apparently for the last three days since her daughter has been in the hospital. She has not been taking any of her medications. She also states that since she got to the emergency room she has had the progressive development of a headache which is primarily frontal and over her left eye. She says that she does get these. She does have a history of these and she has actually been getting them a little bit more frequently lately, maybe once a week. They usually resolve with Advil. She denies any episodes of nausea or vomiting when she does have these headaches. She has had no fevers or chills. She has had no household members that are sick. Her daughter was seen in the hospital for UTI and then constipation. She has had episodes of admission to the hospital for similar symptoms. CBC/BMP: 07/21/16 0640 07/22/16 0710 Significant Findings Laboratory Tests Test 07/20/16 07/20/16 07/20/16 07/20/16 06:10 07:25 11:20 11:45 White Blood Count 17.1 TH/MM3 (4.0-11.0) Red Blood Count 5.65 MIL/MM3 (4.00-5.30) Hemoglobin 16.2 GM/DL (11.6-15.3) Hematocrit 47.8 % (35.0-46.0) Neutrophils (%) (Auto) 89.5 % 93.4 % (16.0-70.0) (16.0-70.0) Lymphocytes (%) (Auto) 4.4 % 3.5 % (9.0-44.0) (9.0-44.0) Neutrophils # (Auto) 15.2 TH/MM3 9.4 TH/MM3 (1.8-7.7) (1.8-7.7) Lymphocytes # (Auto) 0.8 TH/MM3 0.4 TH/MM3 (1.0-4.8) (1.0-4.8) Monocytes # (Auto) 1.0 TH/MM3 (0-0.9) Estimat Glomerular Filtration 69 ML/MIN (>89) Rate Random Glucose 388 MG/DL (74-106) Total Bilirubin 1.4 MG/DL (0.2-1.0) Aspartate Amino Transf 9 U/L (15-37) (AST/SGOT) Alkaline Phosphatase 119 U/L (45-117) Urine Protein 30 mg/dL (NEG-TRACE) Urine Glucose (UA) 1000 OR GREATER mg/dL (NEG) Urine Ketones 80 OR GREATER mg/dL (NEG) Urine Occult Blood TRACE (NEG) Urine Squamous Epithelial 6-8 /hpf (0-5) Cells Hemoglobin A1c 9.6 % (4.3-6.0) Lactic Acid Level 2.4 mmol/L (0.4-2.0) Test 07/20/16 07/20/16 07/21/16 07/22/16 14:05 15:20 06:40 07:10 Lactic Acid Level 2.1 mmol/L (0.4-2.0) Chloride Level 111 MEQ/L 108 MEQ/L 109 MEQ/L (98-107) (98-107) (98-107) Carbon Dioxide Level 19.3 MEQ/L (21.0-32.0) Random Glucose 283 MG/DL 252 MG/DL 220 MG/DL (74-106) (74-106) (74-106) Calcium Level 7.4 MG/DL 7.8 MG/DL 8.1 MG/DL (8.5-10.1) (8.5-10.1) (8.5-10.1) Protein Corrected Calcium 8.1 MG/DL (8.5-10.1) Aspartate Amino Transf 8 U/L (15-37) 10 U/L (15-37) (AST/SGOT) Total Protein 5.9 GM/DL 6.0 GM/DL (6.4-8.2) (6.4-8.2) Albumin 3.0 GM/DL 2.9 GM/DL (3.4-5.0) (3.4-5.0) Neutrophils (%) (Auto) 75.4 % (16.0-70.0) Potassium Level 3.0 MEQ/L (3.5-5.1) Blood Urea Nitrogen 5 MG/DL (7-18) Hospital Course Pt remained somewhat tachycardic for first day of admission. She had some nausea , but no more vomiting. She continued to have some diarrhea and it was noted that 2 other family members became ill with similar symptoms requiring medical attention. She was tolerating oral intake and h/a was controlled with fioricet. CT brain negative. WBC wnl. We discussed specific diet plans and interventions to better control her DM. Pt Condition on Discharge: Stable Discharge Disposition: Discharge Home Discharge Instructions DIET: Follow Instructions for: Diabetic Diet Additional Diet Instructions: start with bland, low fat foods. Activities you can perform: Regular-No Restrictions Follow up Referrals: PCP Follow-up New Medications: Dicyclomine (Bentyl) 20 Mg Tab 20 MG PO TID Bowel Management #12 Ref 0 TAB Glimepiride (Glimepiride) 1 Mg Tab 1 MG PO DAILY Take with breakfast or first main meal Blood Sugar Management #30 Ref 0 TAB Jetdhlgmom-Xglrtdsfumvod-Sqkersdu (Sajpskxmqv-Zgilprcsyzkcx-Rlcuoibl) 50-325-40 Mg Tab 1 TAB PO Q8H PRN HEADACHE #15 TAB Calcium Carbonate (Antacid) (Calcium Carbonate (Antacid)) 500 Mg Chew 500 MG CHEW Q12HR dypepsia #30 EA Pantoprazole (Pantoprazole) 40 Mg Tab 40 MG PO DAILY gastritis #14 TAB Continued Medications: Aspirin (Aspirin) 325 Mg Tab 325 MG PO DAILY #30 Ref 0 TAB Lisinopril (Lisinopril) 20 Mg Tab 20 MG PO DAILY #30 Ref 0 TAB Metformin (Metformin) 500 Mg Tab 500 MG PO BIDPC With meals Blood Sugar Management #60 Ref 0 TAB (This prescription has been renewed) Owen Padilla MD PhD Jul 22, 2016 12:22
--- NOTE | 2016-07-22 18:56 | EKG ---
Date Performed: 07/21/2016 Time Performed: 08:54:28 PTAGE: 45 years EKG: Sinus tachycardia. rSr'(V1) - probable normal variant Otherwise within normal limits Since previous tracing 07/20/2016, heart rate is somewhat slower and ST T changes has improved. Borderline E CG PREVIOUS TRACING : 07/20/2016 16.23 DOCTOR: Ugo Moulton Interpretating Date/Time 07/22/2016 18:55:00
== END 2016-07-22 13:19 | disposition home or self-care (01) ==
LOC: PHED 05:35 → PHEDA 14:21 → PHEDH 18:21 → PH3B 22:05
PROVIDERS: ADMIT Legal Medicine; ATTEND Legal Medicine
DX: K52.9 Noninfective gastroenteritis and colitis, unspecified (principal); R65.10 Systemic inflammatory response syndrome (SIRS) of non-infectious origin without acute organ dysfunction; E87.6 Hypokalemia; E66.9 Obesity, unspecified; E11.65 Type 2 diabetes mellitus with hyperglycemia; I10 Essential (primary) hypertension; E78.5 Hyperlipidemia, unspecified; G43.909 Migraine, unspecified, not intractable, without status migrainosus; E78.00 Pure hypercholesterolemia, unspecified; Z68.38 Body mass index [BMI] 38.0-38.9, adult; Z88.0 Allergy status to penicillin; Z88.8 Allergy status to other drugs, medicaments and biological substances; Z79.82 Long term (current) use of aspirin; Z79.84 Long term (current) use of oral hypoglycemic drugs; Z91.14 Patient's other noncompliance with medication regimen
CPT/HCPCS: 70450; 80048; 80053; 81001; 82948; 83036; 83605; 83690; 83735; 84443; 84703; 85025; 87040; 93005; 96361; 96374; 96375; 99291; G0378; J0780; J1200; J1815; J1885; J2405; J3475; J3480; J7030